=== PATIENT | male | born 1980 | race Two or more races ===

== ENCOUNTER 2025-02-25 16:14 | Emergency (ER) | payer MEDICAID ==
[~2025-02-25] VITALS: Ht 175.3 cm; Wt 90.0 kg
[2025-02-25 17:24] VITALS: BP 130/101; PULSE 70; RESP 18; TEMP 98.4; O2SAT 98
[2025-02-25] MEDS: BUPRENORPHINE HCL/NALOXONE HCL 8-2 MG SUBLINGUAL TABLET SL ONE (17:56)
[2025-02-25] MEDS: BUPRENORPHINE HCL/NALOXONE HCL 2-0.5 MG SUBLINGUAL TABLET SL ONE (17:57)
== END 2025-02-25 18:16 | disposition home or self-care (01) ==
LOC: EMS 16:40
DX: F11.23 Opioid dependence with withdrawal (principal); F41.9 Anxiety disorder, unspecified
CPT/HCPCS: 99283; J0571